=== PATIENT | male | born 1990 | race Caucasian/White ===

== ENCOUNTER 2024-12-09 03:41 | Inpatient (IN) | payer BC, SELFPAY ==
[2024-12-09] VITALS (20 sets, daily range): BP systolic 69–133; BP diastolic 47–81; BMI 32.6; BMI 32.2
--- NOTE | 2024-12-09 02:20 | ED.GENMED ---
History of Present Illness
General
Chief Complaint: Overdose Unintentional
Source: patient and ambulance crew
Exam Limitations: none
Time Seen by Provider: 12/09/24 02:11
Nursing documentation reviewed up to this point in time: agreed with
History of Present Illness
History of Present Illness:
34-year-old male with a past medical history of opioid use presents to the emergency room via EMS for evaluation after opioid overdose. Patient reports that he had not used opioids in a few months, tonight used opioids and unintentionally
overdosed. Per EMS report they received a call that patient was unresponsive. On their arrival patient was cyanotic and pulseless and father was doing CPR. Medics report that initial rhythm was PEA and they could not find a pulse initially. They
began performing BVM ventilation and continued CPR. He was given Narcan intranasally x 2 mg. Shortly thereafter he regained pulse and began to show signs of spontaneous respirations. Total duration of CPR less than 10 minutes by medic medics were
unsure of duration of CPR prior to their arrival. He became hypopneic shortly after initial Narcan and required another 2 mg intranasal dose of Narcan. He was transported to the emergency room and on the way to the emergency room became awake and
alert. On arrival he is alert and talking. He says that he feels short of breath but he denies any other acute issues. He says he has had a cough for the past few days but has otherwise been in his normal state of health. He denies any chest
pain. He denies any abdominal pain. He did have some nausea after Narcan and received some Zofran from the medics. He denies any other drug use or alcohol use. He says that he snorted heroin, never injects. Denies any suicidal intent this
evening. He was noted to have some periorbital ecchymosis on the left on arrival�he says that it was not present earlier this evening and he is not sure how it got there.
UPDATE
I spoke to the patient's parents who are now at bedside. They report that he went to the bathroom this evening and was there for about 30 minutes before they heard a thud. Father found him facedown on the bathroom floor and cyanotic. Father says
he was not breathing. Father called 911 and was told to initiate CPR which he did. Father estimates that it was about 20 minutes before EMS arrived and that EMS was there for about 30 minutes treating patient but ultimately he was awake when
medics left.
Review of Systems
Review of Systems
All Other Systems: ROS reviewed and negative except as documented in HPI and ROS
Constitutional: Denies fever
Respiratory: Reports cough and trouble breathing
Cardiac: Denies chest pain
ABD/GI: Reports nausea; Denies abdominal pain
: Denies flank pain
Musculoskeletal: Denies neck pain or back pain
Neurological: Denies headache
Phy Exam
Physical Exam
Physical Exam:
General: Awake, alert, oriented x3; mild respiratory distress
Head: Normocephalic, left periorbital ecchymosis but no cephalhematoma noted
Eyes: Conjunctiva normal, pupils 3 mm and reactive to light bilaterally; he has left periorbital ecchymosis
Throat: Airway intact, tongue atraumatic, handling secretions
Neck: Trachea midline, no JVD
Lungs: Patient has tachypnea and is hypoxic requiring high flow nasal cannula; breath sounds diminished at the lung bases; he is having gross hemoptysis
Heart: Tachycardia with regular rhythm, no murmurs, gallops, or rubs
Abd: Soft, non distended, nontender
Neuro: Cranial nerves grossly intact, moving all extremities with no gross motor or sensory deficits
Extremities: No edema in extremities, equal pulses in all extremities
Scores
Heart Failure Risk
Heart Failure Risk Score: Not Applicable
Heart Score for Chest Pain Patients
STEMI patient?: Not applicable
Withdrawal Assessment of Alcohol
Withdrawal Assessment Completed?: Not applicable
Course
Orders/Labs/Results
Orders:
Orders
12/09/24 02:04
Chest X-ray Portable [CR Chest Portable - 1 View] Stat
Comment:
Reason For Exam: chest pain
Reason Study Needs to be Portable: Unable to Transport
12/09/24 02:11
CT Head W/o Iv Contrast Urgent
Comment:
Reason For Exam: cardiac arrest
CT Orbits W/o Iv Contrast Urgent
Comment:
Reason For Exam: left orbital trauma
12/09/24 02:13
Electrocardiogram (*1) Urgent
Reason for Study: Shortness of Breath
PE/ABD/Pel w Contrast CT [CT Pe/abd/pel W] Urgent
Comment:
Reason For Exam: cardiac arrest, hypoxia, hemoptysis
EKG- Treatment ONCE
Drug Screen, Urine [Urine Drug Abuse Screen] Urgent
Urinalysis Reflex To Culture Urgent
12/09/24 02:14
COVID-19 Antigen Urgent
Source: Nasal Swab
Complete Blood Count/With Diff Urgent
Lactate Level [Lactic Acid] Urgent
12/09/24 02:15
Acetaminophen Urgent
Alcohol Urgent
CPK [Creatine Phosphokinase] Urgent
Comprehensive Metabolic Panel Urgent
Magnesium Urgent
PTT Urgent
Prothrombin Time Urgent
Troponin I Urgent
12/09/24 02:46
Blood Culture Q30M
AYESHA Source: Blood/Venous
Specimen Description:
12/09/24 02:59
Piperacillin/Tazo 3.375 Gram [Zosyn] 3.375 gram in 50 ml IV NOW
12/09/24 03:00
ABG [Arterial Blood Gas] Urgent
%Oxygen/Room Air: 79%
12/09/24 03:06
Naloxone [Narcan] 0.4 mg IV NOW STA
12/09/24 03:15
Blood Culture Q30M
AYESHA Source: Blood/Venous
Specimen Description:
Abnormal Lab Results
12/09/24 12/09/24
02:14 02:15
Abs Immat Gran (auto) 0.1 H 10^3/uL
(0-0.05)
Absolute Neuts (auto) 8.9 H 10^3/uL
(1.4-6.5)
Absolute Lymphs (auto) 0.7 L 10^3/uL
(1.2-3.4)
Immature Gran % 0.8 H %
(0-0.5)
Neutrophils % 86.3 H %
(42.2-75.2)
Lymphocytes % 7.1 L %
(20.5-51.1)
BUN 28 H mg/dl
(9-20)
Glucose 196 H mg/dl
(70-99)
Lactic Acid 3.2 H mmol/L
(0.7-2.0)
AST 124 H U/L
(17-59)
ALT 86 H U/L
(0-50)
Acetaminophen < 10 L ug/ml
(10-30)
12/09/24 02:14
12/09/24 02:15
Vital Signs
Initial and Last Documented VS:
Initial Vital Signs
Temp Pulse Resp BP Pulse Ox
37.3 C 116 24 123/74 79
12/09/24 02:06 12/09/24 02:06 12/09/24 02:06 12/09/24 02:06 12/09/24 02:06
Last Documented Vital Signs
Temp Pulse Resp BP Pulse Ox
37.3 C 105 28 123/74 79
12/09/24 02:06 12/09/24 02:15 12/09/24 02:15 12/09/24 02:06 12/09/24 02:32
MDM/Problems Addressed
Differential Diagnosis Includes:
Cardiac arrest: Opioid overdose, consider pneumonia/sepsis, PE, dysrhythmia, cardiac causes as well
Hypoxia: Noncardiogenic pulmonary edema, pneumonia/aspiration, PE, CHF
MDM/Problems Addressed:
34-year-old male presents after apparent cardiac arrest/opioid overdose. He was apparently found unresponsive and cyanotic, father initiated CPR and on arrival of medics he was apparently PEA. He received a few minutes of CPR for the medics, BVM
ventilation and intranasal Narcan and ultimately ROSC was obtained and he began breathing spontaneously and is now awake and alert. He is however having mild to moderate respiratory distress and is markedly hypoxic, tachypneic and having gross
hemoptysis. Large-bore IV access established. Stat portable chest x-ray reviewed does appear to show pulmonary edema versus pneumonia. Could be noncardiogenic pulmonary edema related to opioid/naloxone versus aspiration. Placed on high flow
nasal cannula. Labs sent off including a CBC and a CMP, lactate, troponin, tox screen. Stat EKG. Check CT of the head, orbit, chest/abdomen/pelvis. Monitor very closely plan for admission pending initial assessment.
I spoke to the parents who are now at bedside and they provided more of a timeline. Father says that he was doing 20 minutes of CPR because patient was not breathing and print press operator instructed him to initiate CPR. Overall unclear if there was
truly a cardiac arrest�medics had trouble finding a pulse but would be highly unusual for patient to have unwitnessed 30+ minutes cardiac arrest and be awake and alert shortly thereafter with robust blood pressure.
Patient appears stable on high flow nasal cannula although he is becoming more lethargic will repeat Narcan. Awaiting official read of CT but on my review CT head and orbit appear normal and he appears to have pulmonary edema versus pneumonia on
chest CT. No obvious PE noted. Will cover with Zosyn for possible aspiration. Will admit for very close monitoring. I had a long discussion with patient and parents about diagnosis and treatment plan�I explained that very often respiratory
symptoms can worsen in cases like this to the point of needing intubation. Indicated understanding. Case was discussed with hospitalist for admission.
Chronic conditions affecting care:
Opioid use
*Radiology
Radiology exam reviewed: preliminary read by ED provider and radiology read reviewed
*Pulse Oximetry
SaO2: 79
Oxygen Mode of Delivery: Room air
Patient hypoxic: yes (79%)
*EKG
Interpreted by ED Provider?: Yes
Heart Rate: 110
Rate: tachycardiac
Rhythm: sinus
[place]: normal axis
Interval: normal interval
QRS Pattern: right bundle branch block (incomplete)
Ischemia: no ischemia
*Critical Care Note
Total Time (30-74mins, 75-104mins- exclusive of procedures): 41
comment:
Critical care statement: A total of 41 minutes of critical care time was provided for this patient. This includes management of unstable vital signs, evaluation of the patient at bedside, frequent reassessment, discussion with
consultants/hospitalist, and review of pertinent medical records. This time was separate from time utilized to perform any aforementioned documented procedures
Data Reviewed
Source: patient and ambulance crew
Patient Management
Discussion with other providers: Hospitalist (Discussed with hospitalist)
Escalation/DeEscalation of care consider admission/obs:
Admission indicated
ED Attending Note
-
Portions of this chart may have been created with voice recognition software.� Occasional wrong word or��sound alike� substitutions may have occurred due to the inherent limitations of voice recognition software.
Discharge Plan
Departure
Patient Disposition: Admit
Date of Disposition: 12/09/24
Time of Disposition: 03:11
Admit to doctor: Rowan
Presentation/result/management discussed w/ accepting MD/DO: Hospitalist
Patient with high blood pressure during this ER visit?: No
Discharge Problem:
Acute hypoxic respiratory failure, Non-cardiogenic pulmonary edema, Cardiopulmonary arrest with successful resuscitation, Opioid overdose, Aspiration into airway, Hemoptysis
Interventions
Interventions:
*General Assessment Last Done: 12/09/24 02:06
*Neglect/Abuse Screening Last Done: 12/09/24 02:06
*ED- Fall Risk Assessment Last Done: 12/09/24 02:06
*ED COVID-19 Vaccine History Last Done: 12/09/24 02:06
*ED Influenza Vaccine History Last Done: 12/09/24 02:06
ED- Cardiac Assessment Last Done: 12/09/24 02:57
ED- Neurological Assessment Last Done: 12/09/24 02:57
ED-Psychological Assessment Last Done: 12/09/24 02:57
ED- Pulmonary Assessment Last Done: 12/09/24 02:57
Discharge Date and Time
Print Language: [place]
[2024-12-09 02:44] LABS: Hematocrit 42.7 % (39.0-52.0); Hemoglobin 14.6 g/dL (13.0-18.0); Mean Corp Hgb Conc. 34.2 g/dL (33.0-37.0); Mean Corpuscular Volume 87.0 fL (80.0-94.0); Nucleated Red Blood Cells % 0 % (-); Platelet Count 233 10^3/uL (130-400); Red Cell Dist. Width 12.6 % (11.5-14.5)
[2024-12-09 02:55] LABS: INR 1.10; PT 14.5 Sec (11.4-14.6)
[2024-12-09 02:56] LABS: APTT 24.8 Sec (23.4-35.0)
[2024-12-09 02:59] LABS: COVID-19 Antigen Negative (Negative)
[2024-12-09 03:00] LABS: ALT (SGPT) 86 U/L (0-50); AST (SGOT) 124 U/L (17-59); Acetaminophen < 10 ug/ml (10-30); Albumin 4.4 g/dl (3.5-5.0); Alkaline Phosphatase 68 U/L (38-126); Calcium 9.1 mg/dl (8.4-10.2); Carbon Dioxide 26 mmol/L (22-30); Chloride 103 mmol/L (98-107); Estimated Creatinine Clearance 115 ml/min; Glucose 196 mg/dl (70-99); Magnesium 1.9 mg/dl (1.6-2.3); Potassium 4.3 mmol/L (3.5-5.1); Sodium 139 mmol/L (135-145); Total Protein 6.9 g/dl (6.3-8.2); eGFR > 60.00
[2024-12-09 03:09] LABS: Blood Urea Nitrogen 28 mg/dl (9-20)
[2024-12-09 03:14] LABS: Troponin I < 0.012 ng/ml
[2024-12-09] MEDS: NARCAN 0.4 MG IV (03:24)
[2024-12-09] MEDS: ZOFRAN 4 MG IV (03:25)
[2024-12-09 03:29] LABS: B.E. -0.8 mmol/L; HCO3 25.8 mmol/L (21-28); O2 Saturation % 95.9 % (94-98); O2 Therapy 79%; PCO2 49 mmHg (35-48); PO2 78 mmHg (83-108)
[2024-12-09] MEDS: ZOSYN 50 IV ×4 (03:30→20:26)
--- NOTE | 2024-12-09 03:37 | HPS.HSE ---
Family Physician
-
Family Physician: Abhijit Palomo
Chief Complaint
-
Acute respiratory distress, opioid overdose
History of Present Illness
This is a 34-year-old male with no known send Past medical history, coming to the emergency department intubated for respiratory failure with hypoxia.
Patient was found in bathroom unresponsive by his father. When I was not having the patient was able to tell me that he took heroin this a.m. He apparently inhaled crushed heroin. Unclear exactly how much. He was found unresponsive by a friend
who called 911 and was told to start CPR. Reported that he did CPR for around 20 minutes to 30 minutes. He said while doing the CPR he cooled he had some agonal breathing but when he stopped CPR there was no movement of breathing so he continued.
EMS arrived and said the patient was unresponsive. They had some trouble finding a pulse and did another 10 minutes of CPR. They gave him Narcan and BVM. After these interventions the patient woke up and became alert.
Upon arrival in the emergency department he was initially alert but then he became somewhat more lethargic after about an hour and received another dose of Narcan. He denies any history of IV drug use. He denies history of prior opioid use. He
denies any suicidal ideation or suicidal attempt.
He was extremely hypoxic on arrival with oxygen saturation of 70% on room air. He is currently on nonrebreather plus maximum high flow support with tachypnea to the high 30s. His oxygen saturation is ranging from 92 to 95%. His vital signs were
borderline with a blood pressures of around 90-1 20 systolic. Pulse is in the low 100 and a temp of 99.1.
Lactic acid was elevated at 3.2 with otherwise normal CBC, electrolytes BUN and creatinine. Alcohol level is negative. Tylenol level is negative.
His x-ray shows ground glass opacities. CT of the head facial bone abdomen and pelvis with IV contrast shows no evidence of any abnormal process. CT of the chest shows no evidence of pulmonary embolism, there was moderate to severe multifocal
regions of consolidation and ground glass opacities concerning for aspiration.
He has remained lethargic although intermittently last to ask questions and then becoming lethargic again with ongoing tachypnea and low blood pressures. He continued to cough up frothy red-colored material and copious amounts
Medical History
Past Medical History
Past Medical History: Reports None
Past Surgical History: Reports None
Social History
Tobacco: Non-smoker
Alcohol: None
Drug: Former User
Family History
Family History: Not pertinent
Allergies / Home Medications
Allergies reflects when Allergies were last updated in [facility].
Home Medications with original date entered in [facility]
Allergy/Medication List:
Allergies
Allergy/AdvReac Type Severity Reaction Status Date / Time
No Known Allergies Allergy Unverified 12/09/24 03:16
Patient takes no medications
Review of Systems
-
History Source: Family
Respiratory: Reports Cough (Had a cough for about 3 days prior to this event but it was nonproductive.)
Physical Exam
Vital Signs
Vital Signs
Temp Pulse Resp BP Pulse Ox
99.1 F 105 28 123/74 79
12/09/24 02:06 12/09/24 02:15 12/09/24 02:15 12/09/24 02:06 12/09/24 02:32
Physical Exam
General: Well Developed, Well Nourished and Respiratory Distress
HEENT: NormoCephalic, Anicteric, Moist mucous membranes, Atraumatic, PERRLA and Oxygen
Respiratory: Rales
Cardiac: S1/S2 and Tachycardia
Breast: Deferred by me
GI: Soft, Non Tender, Non Distended and Normal Bowel Sounds
Rectal: Deferred by Provider
Genito-urinary: Deferred by me
Musculoskeletal: No Clubbing, No Cyanosis and No Edema
Skin: Warm
Neuro: Awake and Nonfocal/grossly intact
Psych: Calm
Laboratory Results
-
12/09/24 02:14
12/09/24 02:15
Laboratory Results
PT 14.5 Sec (11.4-14.6) 12/09/24 02:15
INR 1.10 12/09/24 02:15
APTT 24.8 Sec (23.4-35.0) 12/09/24 02:15
pH 7.33 (7.35-7.45) L 12/09/24 03:00
pCO2 49 mmHg (35-48) H 12/09/24 03:00
pO2 78 mmHg (83-108) L 12/09/24 03:00
HCO3 25.8 mmol/L (21-28) 12/09/24 03:00
Lactic Acid 3.2 mmol/L (0.7-2.0) H 12/09/24 02:14
Total Bilirubin 0.7 mg/dl (0.2-1.3) 12/09/24 02:15
AST 124 U/L (17-59) H 12/09/24 02:15
ALT 86 U/L (0-50) H 12/09/24 02:15
Alkaline Phosphatase 68 U/L (38-126) 12/09/24 02:15
Troponin I < 0.012 ng/ml 12/09/24 02:15
Data Reviewed
-
CT Scan: Report Reviewed by me
Medical Tests (Nuc Med, Echo, EKG etc): Image Personally Visualized and interpreted
Lab Data: Labs Reviewed by me
Impression/Plan
-
IMPRESSION:
33-year-old who is seen in acute respiratory distress/acute lung injury following unintentional opioid overdose and respiratory failure. He underwent CPR outside of the hospital but is not clear whether he actually coded when patient was given
Narcan he came to and was alert and oriented with no focal deficits. CT of the head shows no acute changes. Despite recovery from opioid overdose with 2 doses of Narcan the patient is in acute respiratory distress and respiratory failure with
multifocal infiltrates on CT scan. He is coughing up copious amount of bloody sputum. No evidence of pulmonary embolism. He is afebrile here and hemodynamically borderline.
PLAN:
Respiratory failure -hypoxic respiratory failure secondary to pulmonary injury�secondary to aspiration or inhalation injury. Appears to have a degree of noncardiogenic pulmonary edema
-Admit to ICU
-Patient to be intubated due to excessive work of breathing and ongoing hypoxia - > low volume with some permissive hypercapnia
-Initial vent settings 14 400 100 5, adjust PEEP to maintain sat greater than 92%, adjust on f/u gas
- pressors to maintain support to avoid excessive volume resuscitation
- Blood cultures sent, COVID-negative, check flu
-IV Zosyn for now, sputum culture
- mineral technologist consult
Cardiac arrest - Initial trop negative. ECG w/o ischemia. Patient awake after narcan. Suspect no cardiac arrest.
- check echo
- trend troponins
DVT prophylaxis�Lovenox subcu
CODE STATUS�full code
[2024-12-09] MEDS: VERSED 5 MG IV (04:06)
[2024-12-09] MEDS: SUBLIMAZE 100 IV ×5 (04:13→21:45)
[2024-12-09] MEDS: DIPRIVAN 100 IV ×4 (04:15→21:11)
--- NOTE | 2024-12-09 04:18 | ED.GENMED ---
History of Present Illness
General
Chief Complaint: Overdose Unintentional
Time Seen by Provider: 12/09/24 02:11
History of Present Illness
History of Present Illness:
After initial signout to hospitalist, patient becoming increasingly tachypneic and labored with his breathing. Assessed at bedside with hospitalist and decision made to proceed with intubation. Discussed with patient and family who are agreeable
given worsening respiratory status. He was successfully intubated as documented in procedure note below. He had some prolonged hypoxia after intubation requiring bagging, was ultimately placed on high PEEP. Required multiple pushes of propofol to
maintain sedation and immediate post intubation period. Placed on propofol infusion and fentanyl infusion for deep sedation overnight. Hospitalist at bedside for reassessment after intubation, patient to be admitted upstairs to the ICU.
Phy Exam
Physical Exam
Physical Exam:
.
Course
Orders/Labs/Results
Orders:
Orders
12/09/24 02:04
Chest X-ray Portable [CR Chest Portable - 1 View] Stat
Comment:
Reason For Exam: chest pain
Reason Study Needs to be Portable: Unable to Transport
12/09/24 02:11
CT Head W/o Iv Contrast Urgent
Comment:
Reason For Exam: cardiac arrest
CT Orbits W/o Iv Contrast Urgent
Comment:
Reason For Exam: left orbital trauma
12/09/24 02:13
Electrocardiogram (*1) Urgent
Reason for Study: Shortness of Breath
PE/ABD/Pel w Contrast CT [CT Pe/abd/pel W] Urgent
Comment:
Reason For Exam: cardiac arrest, hypoxia, hemoptysis
EKG- Treatment ONCE
Drug Screen, Urine [Urine Drug Abuse Screen] Urgent
Urinalysis Reflex To Culture Urgent
12/09/24 02:14
COVID-19 Antigen Urgent
Source: Nasal Swab
Complete Blood Count/With Diff Urgent
Lactate Level [Lactic Acid] Urgent
12/09/24 02:15
Acetaminophen Urgent
Alcohol Urgent
CPK [Creatine Phosphokinase] Urgent
Comprehensive Metabolic Panel Urgent
Magnesium Urgent
NT-proBNP Urgent
Comment: ADDED
PTT Urgent
Prothrombin Time Urgent
Troponin I Urgent
12/09/24 02:46
Blood Culture Q30M
AYESHA Source: Blood/Venous
Specimen Description:
Blood Culture Q30M
AYESHA Source: Blood/Venous
Specimen Description:
12/09/24 03:00
ABG [Arterial Blood Gas] Urgent
%Oxygen/Room Air: 79%
12/09/24 03:06
Naloxone [Narcan] 0.4 mg IV NOW STA
12/09/24 03:16
Add On- LAB Stat
Tests Added?: bnp
Admit/Transfer Patient As Directed
Co-Sign Provider:
Level of Care: Inpatient admission
Assign to:: ICU
Physician / Group: Rowan
Diagnosis: Respiratory failure, unintentional overdose
Reason for Hospitalization: respiratory failure
Expected length of stay greater than two midnights?: Yes
ELOS- Estimated Length of Stay in days: 2
I certify the patient meets the requirements for IP care: Yes
PRN Pain Medication Management As Directed
May give lesser potent ordered pain med per pt: Yes
preference::
Protocol:: Medication orders for pain may be administered in a
manner that supports deferring to patient preference
when the pt is:
- Requesting an ordered lesser potent pain medication.
Least to most potent pain medications are defined
as: acetaminophen < NSAID < tramadol < opioids
(morphine, oxycodone, hydromorphone).
- Requesting a lesser dose of the same medication IF
ORDERED.
- Requesting a less intrusive route of administration
if both routes are prescribed by the provider (PO <
IV).
12/09/24 03:17
Ondansetron Injectable [Zofran] 4 mg .ROUTE .STK-MED ONE
12/09/24 03:18
Piperacillin/Tazo 3.375 Gram [Zosyn] 3.375 gram in 50 ml IV NOW
12/09/24 03:21
Code Status As Directed
Resuscitation Status: Full Code
12/09/24 03:22
Naloxone [Narcan] 0.4 mg .ROUTE .STK-MED ONE
12/09/24 03:25
Ondansetron Injectable [Zofran] 4 mg IV NOW STA
12/09/24 03:37
Propofol 1,000,000 Mcg/100 ml [Diprivan] 1,000,000 mcg in 100 ml .ROUTE .STK-MED
Abnormal Lab Results
12/09/24 12/09/24 12/09/24
02:14 02:15 03:00
Abs Immat Gran (auto) 0.1 H 10^3/uL
(0-0.05)
Absolute Neuts (auto) 8.9 H 10^3/uL
(1.4-6.5)
Absolute Lymphs (auto) 0.7 L 10^3/uL
(1.2-3.4)
Immature Gran % 0.8 H %
(0-0.5)
Neutrophils % 86.3 H %
(42.2-75.2)
Lymphocytes % 7.1 L %
(20.5-51.1)
pH 7.33 L
(7.35-7.45)
pCO2 49 H mmHg
(35-48)
pO2 78 L mmHg
(83-108)
BUN 28 H mg/dl
(9-20)
Glucose 196 H mg/dl
(70-99)
Lactic Acid 3.2 H mmol/L
(0.7-2.0)
AST 124 H U/L
(17-59)
ALT 86 H U/L
(0-50)
Acetaminophen < 10 L ug/ml
(10-30)
12/09/24 02:14
12/09/24 02:15
Vital Signs
Initial and Last Documented VS:
Initial Vital Signs
Temp Pulse Resp BP Pulse Ox
37.3 C 116 24 123/74 79
12/09/24 02:06 12/09/24 02:06 12/09/24 02:06 12/09/24 02:06 12/09/24 02:06
Last Documented Vital Signs
Temp Pulse Resp BP Pulse Ox
37.3 C 123 23 133/65 79
12/09/24 02:06 12/09/24 04:00 12/09/24 04:00 12/09/24 03:55 12/09/24 02:32
Procedures
Intubations
Procedure completed by: Demetris Gallegos MD
Method of Intubation: glidescope
Tube size (cm): 8.0
Placement confirmed by: auscutation, CXR and capnography
Breath sounds after intubation: equal
Intubation complications: O2 saturation decreased
*Pulse Oximetry
SaO2: 79
Nasal Cannula flow liters per minute: 55
Oxygen Mode of Delivery: Room air
Patient hypoxic: not evaluated
*Critical Care Note
Total Time (30-74mins, 75-104mins- exclusive of procedures): Not Applicable
ED Attending Note
-
Portions of this chart may have been created with voice recognition software.� Occasional wrong word or��sound alike� substitutions may have occurred due to the inherent limitations of voice recognition software.
Discharge Plan
Departure
Patient Disposition: Admit
Date of Disposition: 12/09/24
Time of Disposition: 03:11
Admit to doctor: Rowan
Presentation/result/management discussed w/ accepting MD/DO: Hospitalist
Patient with high blood pressure during this ER visit?: No
Discharge Problem:
Acute hypoxic respiratory failure, Non-cardiogenic pulmonary edema, Cardiopulmonary arrest with successful resuscitation, Opioid overdose, Aspiration into airway, Hemoptysis
Interventions
Interventions:
*General Assessment Last Done: 12/09/24 02:06
*Neglect/Abuse Screening Last Done: 12/09/24 02:06
*ED- Fall Risk Assessment Last Done: 12/09/24 02:06
*ED COVID-19 Vaccine History Last Done: 12/09/24 02:06
*ED Influenza Vaccine History Last Done: 12/09/24 02:06
ED- Cardiac Assessment Last Done: 12/09/24 02:57
ED- Neurological Assessment Last Done: 12/09/24 02:57
ED-Psychological Assessment Last Done: 12/09/24 02:57
ED- Pulmonary Assessment Last Done: 12/09/24 02:57
[2024-12-09] MEDS: SUBLIMAZE 50 MCG IV ×3 (05:02→07:39)
[2024-12-09 05:35] LABS: Glucose - Point of Care 92 mg/dl (70-99)
[2024-12-09 05:39] LABS: Urine Character Clear (Clear)
[2024-12-09 05:51] LABS: Urine Red Blood Cell 0-2 /HPF (0-2); Urine Squamous Cell 0-2 /LPF (Few); Urine White Cell 0-2 /HPF (0-5)
[2024-12-09 05:53] LABS: Triglycerides 122 mg/dl (10-149)
[2024-12-09] MEDS: NSS 1000 IV (06:12)
--- NOTE | 2024-12-09 06:14 | W.PN.UPDATE ---
Update Note
Progress Note Update
Procedure Note: Arterial Line�
� Right Wrist Arrow 20 (05/12)�
Diagnosis:��respiratory failure to drug overdose
IV Line Comments: Uneventful Procedure�
Rachel completed pre-procedure: Yes�
A-Line Comments: Sterile technique as per standard protocol, Ultrasound guided insertion�
Functioning�A-line in situ: Yes�
A-line Insertion Start Time:�0545�
A-line in at:��0600
[2024-12-09 06:17] LABS: B.E. -1.0 mmol/L; HCO3 23.5 mmol/L (21-28); O2 Saturation % 100.0 % (94-98); PCO2 38 mmHg (35-48); PO2 251 mmHg (83-108)
[2024-12-09] MEDS: VERSED 2 MG IV ×4 (06:17→20:27)
--- NOTE | 2024-12-09 06:39 | PTCARENOTE ---
Received patient from ED around 445 this am. Patient intubated, sedated on Fentanyl at 300mcg/30ml/hr, Propofol 50mcg/30.9ml/hr. Patient with b/l wrist restraints, strong cough noted, patient sitting up in bed with coughing. Multiple doses of
Fentanyl PRN administered along with 1x dose of Versed. NGT placed to right nare at 55cm and set to LIWS. Duque cath placed and draining clear yellow urine. IVF started at 125ml/hr. Right a-line placed by CASH MANAGEMENT SPECIALIST, zero'd transduced and correlating with
bp. Eren ordered for MAP <65. Labs obtained, UA sent. 3rd IV, 18g, placed in right upper arm.
Parents at bedside, will updating oncoming RN's.
--- NOTE | 2024-12-09 07:53 | CON.INTV ---
Addendum entered and electronically signed by Katlyn Gentile MD 12/09/24 11:48:
Follow-up arterial blood gas reviewed, 7.40
Continue tidal volume at 7 mL/kg at 500, low respiratory rate to 20, continue PEEP at 8, lower FiO2 to 40%.
Original Note:
Consultation
Consultation Request
Date/Time Consultation Requested: 12/08/2024
Date/Time Consultation Performed: 12/10/2024
Medical History
-
History of Present Illness:
Patient currently intubated, mechanically ventilated and sedated, unable to provide any history. Information obtained from EMS records as well as discussion with other healthcare providers.
As per EMS records, a call was placed for patient being unresponsive. Reportedly patient had inhaled crushed heroin and was found unresponsive. Reportedly he received CPR for 20 to 30 minutes in total. On EMS arrival, patient was cyanotic and was
not breathing and did not have a pulse and was receiving chest compressions by his father. EMS took over giving chest compressions was bagged and was given intranasal Narcan following which patient started breathing on his own and had a pulse. He
was placed on oxygen and then started desaturating again requiring another dose of Narcan intranasally. Subsequently patient was more awake, alert and was conversant. Patient was subsequently brought to the emergency room.
Patient was noted to be severely hypoxic in the emergency room requiring nonrebreather as well as high flow oxygen. In view of severe hypoxia, patient was subsequently intubated and mechanically ventilated. Patient was then admitted to ICU and
tread builder consultation was requested for further input.
Past Medical History
Past Medical History: Reportedly None
Past Surgical History: Reportedly None
Social History
Tobacco: Non-smoker
Alcohol: None
Drug: Former User
Family History
Family History: Not pertinent
Allergies / Home Medications
Allergies / Home Medications
Allergies
Allergy/AdvReac Type Severity Reaction Status Date / Time
No Known Allergies Allergy Unverified 12/09/24 03:16
Review of Systems
-
Unable to Obtain full review of systems at this time due to: Patient Intubation
Vitals / Labs / Diagnostic Testing
Vital Signs
Temp Pulse Resp BP Pulse Ox
99.2 F 87 23 118/76 100
12/09/24 07:40 12/09/24 06:45 12/09/24 06:45 12/09/24 06:45 12/09/24 07:29
Lab Data
12/09/24 06:00
12/09/24 06:00
Laboratory Results
12/09/24 12/09/24 12/09/24
02:15 03:00 06:03
PT 14.5
INR 1.10
APTT 24.8
pH 7.33 L 7.40
pCO2 49 H 38
pO2 78 L 251 H
HCO3 25.8 23.5
O2 Delivery Level 79%
Microbiology
12/09/24 05:21 Nasal Swab Influenza Types A & B (GUANAKO) - Final
Negative for Influenza A & B, NAAT
Negative results must be combined with clinical observations
and patient history.
Nucleic Acid Amplification test (NAAT)performed on the
[employer] ID NOW platform.
Diagnostic Testing:
Physical Exam
-
HEENT: Normocephalic and Other (Mild periorbital swelling noted, suspect related to contusion)
Cardiovascular: S1/S2
Respiratory: Clear and Non-Labored Respirations
GI: Non Distended
Neurology: Other (Sedated. )
Skin: Warm
General: Comfortable
Assessment
-
#1. Acute hypoxic respiratory failure with multifocal pneumonia/pneumonitis
- Differential diagnosis include aspiration pneumonitis/aspiration pneumonia versus opioid induced acute lung injury with noncardiogenic pulmonary edema
- Patient at risk of developing ARDS, current PF ratio 251
- Continue broad-spectrum antibiotic IV Zosyn to cover oral kae. Check MRSA screen.
- Influenza A, B, COVID-19 screen negative. MRSA screen pending. Sputum cultures pending. Blood cultures negative so far.
- Considering severity of pneumonitis, start IV methylprednisolone 40 mg daily
- Continue mechanical ventilation, will aim for lung protective ventilation, current peak pressure 22, plat is 17,
- Serial ABG, titrate FiO2 as tolerated
- Follow-up chest x-ray and ABG in a.m. continue sedation with IV propofol and IV fentanyl
- If patient not extubated in the next 24 hours, will initiate tube feeding
#2. Heroin overdose
- Patient received 2 doses of intranasal Narcan by EMS with good response
- Currently patient is intubated, mechanically ventilated, hold off additional Narcan
#3. ?Cardiac arrest at home vs opiate induced apnea
- Patient reportedly was cyanotic on initial evaluation by EMS and could not palpate any pulse or breathing. Patient received CPR
- Positive response to Narcan and patient subsequently awake and alert.
- Suspect opiate induced to severe respiratory depression
- Target normothermia. Avoid hypoglycemia
- Considering patient was awake, alert and oriented in the emergency room, hold off CT head or EEG at this time
- EKG with sinus tachycardia, normal QTc. Troponin and BNP unremarkable. Echocardiogram is pending
#4. Rhabdomyolysis
- Suspect related to being on the floor for unknown duration
- CK level above 4000
- Initiate IV hydration with Ringer lactate at 150 cc an hour, follow-up CK in a.m.
- Mildly abnormal LFTs likely related to rhabdomyolysis
#5. Lactic acidosis
- Likely in the setting of underlying severe respiratory failure
- Continue IV hydration, antibiotics, serial lactate
- Follow ABG
DVT prophylaxis. Subcu Lovenox
GI prophylaxis. IV Protonix
Critical Care time 65 mins -- The patient is admitted for acute critical illness for the treatment of vital organ failure and/or prevention of further life-threatening conditions. Total care includes time spent in review of history, physical exam,
medications, hemodynamic/ventilator parameters, laboratory data, imaging and discussion with house staff, pharmacy, respiratory therapy, health technical writer, and nursing.
Data:
EKG 12/2024: ST with QTc 454
CXR 12/2024: Increased reticulonodular markings scattered throughout both lungs. Main differential considerations of pulmonary edema and bilateral pneumonia.
CT Head/Orbits 12/2024: Bilateral periorbital soft tissue swelling, left greater than right. No evidence for orbital injury.
Slight asymmetric prominence of left frontal scalp soft tissues compared to the right, suggesting scalp edema and/or contusion. No evidence for calvarial fracture.
No evidence of acute intracranial abnormality.
[2024-12-09] MEDS: PROTONIX IV 40 MG IV (08:55)
[2024-12-09] MEDS: LR 1000 IV ×3 (08:55→21:46)
[2024-12-09] MEDS: NSS (PRESERVATIVE FREE) 10 ML IV (08:56)
[2024-12-09] MEDS: SOLU-MEDROL PF 40 MG IV (08:57)
--- NOTE | 2024-12-09 10:57 | W.PN.HOSP.TC ---
Today's Communication/Plan
-
Continue current care
Assessment / Plan
Assessment / Plan
Gen-sedated, intubated
HEENT-NC, left orbital bruising, anicteric, clear oral mm
Neck-supple
CV-reg, no M, +S1/S2
Lungs-clear B/L
Abd-soft, NT, ND
Ext-no edema
Musculoskeletal-no cyanosis, clubbing
Skin-warm and dry
Acute hypoxic respiratory failure -suspect related to inhalational lung injury, possible ARDS. Intubated in the emergency room.
Continue ICU level care. Electric Motor Tester Assembler involved.
CT shows bilateral ground glass and more confluent opacities, relative sparing of the periphery of the lungs.
IV steroids per pulmonary.
On empiric antibiotics but clinically doubt pneumonia.
Mild lactic acidosis noted, repeat pending.
Elevated transaminases -unclear etiology. Monitor for now.
Substance abuse -reportedly inhales heroin, no history of IVDA. Surprisingly, UDS negative.
Will consult psychiatry when extubated and stable.
Left orbital bruising -due to fall, patient found down and unresponsive on the bathroom floor by parents prior to admission. CT scan shows bilateral periorbital soft tissue swelling, left greater than right, no evidence of orbital injury. No
evidence of fracture.
Full code
Family updated at the bedside.
Anticipated Discharge: > 48 hours
Subjective/Interval History
-
Date of Service: December 09, 2024
Patient seen and examined. Remains sedated, intubated.
Objective Data
-
Labs:
Laboratory Results
12/09/24 12/09/24 12/09/24
02:14 02:15 03:00
WBC 10.3
Hgb 14.6
Hct 42.7
Plt Count 233
PT 14.5
INR 1.10
APTT 24.8
HCO3 25.8
Sodium 139
Potassium 4.3
Chloride 103
Carbon Dioxide 26
BUN 28 H
Creatinine 1.1
Glucose 196 H
Calcium 9.1
Total Bilirubin 0.7
AST 124 H
ALT 86 H
Alkaline Phosphatase 68
12/09/24 12/09/24 12/09/24
06:00 06:03 11:00
WBC Cancelled
Hgb Cancelled
Hct Cancelled
Plt Count Cancelled
PT
INR
APTT
HCO3 23.5 Pending
Sodium Cancelled
Potassium Cancelled
Chloride Cancelled
Carbon Dioxide Cancelled
BUN Cancelled
Creatinine Cancelled
Glucose Cancelled
Calcium Cancelled
Total Bilirubin
AST
ALT
Alkaline Phosphatase
Vital Signs:
Vital Signs
Temp Pulse Resp BP Pulse Ox
99.2 F 87 23 118/76 100
12/09/24 07:40 12/09/24 06:45 12/09/24 06:45 12/09/24 06:45 12/09/24 10:04
I&O
12/08/24 12/09/24 12/10/24
06:59 06:59 06:59
Intake Total 525 / 525
Output Total 650 / 650 205 / 205
Balance -650 / -525 320 / 320
Review of Systems
-
Unable to obtain full review of systems at this time due to: Acuity and Patient Intubation
[2024-12-09 11:23] LABS: B.E. -0.2 mmol/L; HCO3 22.6 mmol/L (21-28); O2 Saturation % 99.8 % (94-98); PCO2 31 mmHg (35-48); PO2 123 mmHg (83-108)
[2024-12-09 11:51] LABS: Troponin I 0.023 ng/ml
--- NOTE | 2024-12-09 12:00 | PTCARENOTE ---
Assessment and vital sign trends documented in flowsheets. Family updated during ICU rounds and throughout the day. Patient becomes increasingly agitated with nursing care requiring PRN sedatives. Trending ABG values as ordered.
--- NOTE | 2024-12-09 12:54 | CM ---
Patient intubated. Initial assessment completed with parents in room. Patient was visiting grandmother in [facility]. Patient lives with parents in [place] in 3 story home plus basement with B/B on 3rd, 1/2 bath on , 4 steps to enter. BOTTOM SPRAYER patient
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 No DME. No in-home services. No HC-POA. No VA benefits. No psychiatric hospitalizations. Has had 1 inpatient stay at rehab in [place]. PCP is Dr. Lacey
Dewey. Pharmacy is [facility] on [facility] in . Discharge POC: TBD. [facility]ARES notified.
[2024-12-09 13:33] LABS: Glucose - Point of Care 115 mg/dl (70-99)
--- NOTE | 2024-12-09 14:20 | CARDSERVLU ---
Echocardiogram with Lumason completed after protocol screening completed. Allergies verified.
Patent IV site: ___R AC__
IV site flushed with 0.9% NaCl pre and post administration.
Diluted bolus method utilized to enhance visualization of ventricular blum.
Total volume given: ___2.5_ mL
Patient tolerated all procedures well without complications.
[2024-12-09] MEDS: LR 500 IV (17:16)
[2024-12-09 17:34] LABS: B.E. -1.1 mmol/L; HCO3 23.5 mmol/L (21-28); O2 Saturation % 99.2 % (94-98); PCO2 38 mmHg (35-48); PO2 97 mmHg (83-108)
[2024-12-09] MEDS: LOVENOX 40 MG SC (17:56)
[2024-12-09] MEDS: LEVOPHED 250 IV (17:57)
[2024-12-09 18:00] LABS: Glucose - Point of Care 108 mg/dl (70-99)
--- NOTE | 2024-12-09 18:20 | PTCARENOTE ---
Patient became hypotensive sustaining systolic BP in 70's. 500mL LR bolus ordered and given. Started on norepinephrine infusion. Critical care nurse at bedside.
--- NOTE | 2024-12-09 20:15 | PTCARENOTE ---
cleaner and polisher, pt intub/sedated, SR HR 70-80s, IV x 3 WNL - Fent, Prop, IVF, Levo infusing per work list. R rad AL leveled/zeroed. MV 40%, Sat 97%, tolerating. mouth care, turned/repositioned. parents at bedside. care ongoing.
[2024-12-10] VITALS (16 sets, daily range): BP systolic 100–141; BP diastolic 50–78; BMI 33.8
--- NOTE | 2024-12-10 | PTCARENOTE ---
no changes in assessment.
[2024-12-10] MEDS: DIPRIVAN 100 IV ×3 (00:06→05:45)
[2024-12-10] MEDS: VERSED 2 MG IV ×2 (00:15→04:37)
[2024-12-10 00:16] LABS: Glucose - Point of Care 108 mg/dl (70-99)
[2024-12-10] MEDS: SUBLIMAZE 100 IV ×2 (00:58→04:37)
[2024-12-10] MEDS: ZOSYN 50 IV ×2 (02:52→07:58)
[2024-12-10 03:09] LABS: B.E. 0.8 mmol/L; HCO3 24.0 mmol/L (21-28); O2 Saturation % 99.5 % (94-98); PCO2 33 mmHg (35-48); PO2 105 mmHg (83-108)
[2024-12-10 03:21] LABS: Hematocrit 33.0 % (39.0-52.0); Hemoglobin 11.7 g/dL (13.0-18.0); Mean Corp Hgb Conc. 35.5 g/dL (33.0-37.0); Mean Corpuscular Volume 84.4 fL (80.0-94.0); Nucleated Red Blood Cells % 0 % (-); Platelet Count 192 10^3/uL (130-400); Red Cell Dist. Width 12.7 % (11.5-14.5)
[2024-12-10 03:32] LABS: ALT (SGPT) 47 U/L (0-50); AST (SGOT) 42 U/L (17-59); Albumin 3.0 g/dl (3.5-5.0); Alkaline Phosphatase 43 U/L (38-126); Blood Urea Nitrogen 14 mg/dl (9-20); Calcium 8.0 mg/dl (8.4-10.2); Carbon Dioxide 23 mmol/L (22-30); Chloride 110 mmol/L (98-107); Estimated Creatinine Clearance > 125 ml/min; Glucose 98 mg/dl (70-99); Magnesium 1.8 mg/dl (1.6-2.3); Potassium 3.4 mmol/L (3.5-5.1); Sodium 137 mmol/L (135-145); Total Protein 5.3 g/dl (6.3-8.2); eGFR > 60.00
[2024-12-10] MEDS: LR 1000 IV ×2 (04:36→12:20)
[2024-12-10] MEDS: LEVOPHED 250 IV (04:48)
--- NOTE | 2024-12-10 05:00 | PTCARENOTE ---
pt intermittently restless w/care, prn versed per MAR. no further changes.
[2024-12-10] MEDS: KCL 270 MEQ IV (06:28)
[2024-12-10] MEDS: PRECEDEX 100 IV (06:29)
[2024-12-10] MEDS: MIRALAX 17 GRAMS TUBE (07:28)
[2024-12-10] MEDS: SOLU-MEDROL PF 40 MG IV (07:28)
[2024-12-10] MEDS: PROTONIX IV 40 MG IV (07:28)
--- NOTE | 2024-12-10 07:41 | W.PN.HOSP.TC ---
Today's Communication/Plan
-
Replete potassium
Wean down sedation
Wean down pressors
Extubate per architectural draftsman
Psychiatry consult when awake
Assessment / Plan
Assessment / Plan
Gen-sedated, intubated
HEENT-NC, left orbital bruising, anicteric, clear oral mm
Neck-supple
CV-reg, no M, +S1/S2
Lungs-clear B/L
Abd-soft, NT, ND
Ext-no edema
Musculoskeletal-no cyanosis, clubbing
Skin-warm and dry
Acute hypoxic respiratory failure -suspect related to inhalational lung injury, opioid overdose, possible pneumonia, possible ARDS. No evidence of congestive heart failure. BNP on admission less than 20. Echocardiogram normal.
Intubated in the emergency room.
CPR done at home by family as well as EMS for presumed cardiac arrest, details unclear.
Continue ICU level care. Sample Case Porter involved.
CT shows bilateral ground glass and more confluent opacities, relative sparing of the periphery of the lungs.
IV steroids per pulmonary.
On empiric antibiotics for possible multifocal pneumonia.
Lactic acidosis resolved.
Chest x-ray 12/10 shows improvement in bilateral infiltrates based upon my read, official report pending. Rapid improvement of infiltrates makes pneumonia less likely.
On empiric IV methylprednisolone for pneumonitis as per pulmonary.
ABG this morning shows pH 7.47, pCO2 33, pO2 105, bicarb 24, 99.5% saturation on the ventilator FiO2 40%, PEEP 6, tidal volume 500, rate 20.
Extubation per architectural draftsman.
Shock - currently on low-dose Levophed IV. Differential diagnosis of septic shock versus other etiology.
Blood cultures negative so far. Wean down Levophed as able. Mean arterial pressures are more than adequate, 89 this morning.
Hypokalemia -getting IV repletion. Magnesium 1.8.
Hyperphosphatemia -present on admission, resolved.
Hypocalcemia -8.0. Probably of no clinical consequence, admission calcium was normal.
Elevated transaminases -suspect related to rhabdomyolysis. Resolved.
Acute nontraumatic rhabdomyolysis -present on admission, improved. Can back off on rate of IV fluids.
Substance abuse -reportedly inhales heroin, no history of IVDA. Urine fentanyl screen positive. This was done on UDS obtained in the emergency room prior to initiation of IV fentanyl in the hospital.
Will consult psychiatry when extubated and stable.
Left orbital bruising -due to fall, patient found down and unresponsive on the bathroom floor by parents prior to admission. CT scan shows bilateral periorbital soft tissue swelling, left greater than right, no evidence of orbital injury. No
evidence of fracture.
Acute anemia -hemoglobin 14.6 on admission, 11.7 this morning. Suspect hemodilution from IV fluid administration. No evidence of bleeding.
Full code
Family updated at the bedside.
Anticipated Discharge: > 48 hours
Subjective/Interval History
-
Date of Service: December 10, 2024
Patient seen and examined, sedated, intubated. Looks comfortable.
Objective Data
-
Labs:
Laboratory Results
12/10/24
02:52
WBC 12.0 H
Hgb 11.7 L
Hct 33.0 L
Plt Count 192
HCO3 24.0
Sodium 137
Potassium 3.4 L
Chloride 110 H
Carbon Dioxide 23
BUN 14
Creatinine 0.8
Glucose 98
Calcium 8.0 L
Total Bilirubin 1.2
AST 42
ALT 47
Alkaline Phosphatase 43
Vital Signs:
Vital Signs
Temp Pulse Resp BP Pulse Ox
99 F 64 20 118/76 93
12/10/24 03:30 12/10/24 05:45 12/10/24 05:45 12/09/24 06:45 12/10/24 05:45
I&O
10/04/0412/10/24 12/11/24
06:59 06:59 06:59
Intake Total 3189.9 / 3426.5 236.6 / 236.6
Output Total 650 / 650 1390 / 1490 100 / 100
Balance -650 / -525 1799.9 / 1936.5 136.6 / 136.6
Review of Systems
-
Unable to obtain full review of systems at this time due to: Acuity and Patient Intubation
--- NOTE | 2024-12-10 08:01 | PTCARENOTE ---
pt received from previous rn- ett to vent- see settings as charted. Dr. Gentile at bedside, weaning sedation as per Dr. Gentile. right radial farzana zeroed and functioning. ivf continue as per order. levo on 2mcg. nsr to sinus vince on monitor, pt
follows simple commands. parents at bedside and both educated on weaning and plan of care, both verbalized understanding. all safety precautions in place.
--- NOTE | 2024-12-10 08:53 | PTCARENOTE ---
pt extubated to 2LNC, pt appropriate, parents remain at bedside. precedex off. remains on ivf
--- NOTE | 2024-12-10 09:24 | RESPNOTE ---
Pt extubated to nasal cannula 2L, without complications at 8:50.
--- NOTE | 2024-12-10 10:24 | PTCARENOTE ---
a line removed per order, pressure dressing applied. madrid removed at 1015.
[2024-12-10] MEDS: ZOFRAN 4 MG IV (11:17)
[2024-12-10 11:53] LABS: Glucose - Point of Care 96 mg/dl (70-99)
--- NOTE | 2024-12-10 13:00 | PTCARENOTE ---
per Dr. Gentile complete swallow screen- pt passed screen, regular diet ordered per md.
--- NOTE | 2024-12-10 13:00 | PTCARENOTE ---
pt passed swallow screen completed per Dr. Gentile, regular diet ordered per md.
--- NOTE | 2024-12-10 13:37 | W.PN.INTV ---
Today's Communication / Plan
Recommendations
- Tolerated SAT/SBT well, extubated to nasal cannula
- 5 days of antibiotics, Unasyn/Augmentin should suffice
- Continue steroids for 5 days
- Weaned off pressors
- Patient stable for transfer out of ICU.
- Rolloff Truck Driver service will sign off, please call as needed
Assessment
-
As per EMS records, a call was placed for patient being unresponsive. Reportedly patient had inhaled crushed heroin and was found unresponsive. Reportedly he received CPR for 20 to 30 minutes in total. On EMS arrival, patient was cyanotic and was
not breathing and did not have a pulse and was receiving chest compressions by his father. EMS took over giving chest compressions was bagged and was given intranasal Narcan following which patient started breathing on his own and had a pulse. He
was placed on oxygen and then started desaturating again requiring another dose of Narcan intranasally. Subsequently patient was more awake, alert and was conversant. Patient was subsequently brought to the emergency room.
Patient was noted to be severely hypoxic in the emergency room requiring nonrebreather as well as high flow oxygen. In view of severe hypoxia, patient was subsequently intubated and mechanically ventilated. Patient was then admitted to ICU and
tick sewer consultation was requested for further input.
#1. Acute hypoxic respiratory failure with multifocal pneumonia/pneumonitis/Inhalational injury
- Differential diagnosis include aspiration pneumonitis/aspiration pneumonia versus opioid induced acute lung injury with noncardiogenic pulmonary edema
- Responded well to antibiotic, steroids and ventilatory support
- 12/10, tolerated SAT and SBT well. Precedex was added and patient was weaned off of fentanyl and propofol. Extubated successfully to nasal cannula
- Follow-up chest x-ray improved
- MRSA screen negative, discontinue IV vancomycin. Switch to IV Unasyn. 5 days of antibiotics should suffice
- Continue steroid for 5 days total
#2. Heroin overdose
- Patient received 2 doses of intranasal Narcan by EMS with good response
- Monitor closely for signs/symptoms of withdrawal
#3. ?Cardiac arrest at home vs opiate induced apnea
- Patient reportedly was cyanotic on initial evaluation by EMS and could not palpate any pulse or breathing. Patient received CPR
- Positive response to Narcan and patient subsequently awake and alert.
- Suspect opiate induced severe respiratory depression. Echocardiogram is unremarkable
#4. Rhabdomyolysis
- Suspect related to being on the floor for unknown duration
- CK level was above 4000, responded well to IV fluids, improving levels
#5. Lactic acidosis
- Likely in the setting of underlying severe respiratory failure
- Resolved.
DVT prophylaxis. Subcu Lovenox
GI prophylaxis. IV Protonix
Critical Care time 48 mins -- The patient is admitted for acute critical illness for the treatment of vital organ failure and/or prevention of further life-threatening conditions. Total care includes time spent in review of history, physical exam,
medications, hemodynamic/ventilator parameters, laboratory data, imaging and discussion with house staff, pharmacy, respiratory therapy, telephone sales agent, and nursing.
Data:
EKG 12/2024: ST with QTc 454
CXR 12/2024: Increased reticulonodular markings scattered throughout both lungs. Main differential considerations of pulmonary edema and bilateral pneumonia.
CT Head/Orbits 12/2024: Bilateral periorbital soft tissue swelling, left greater than right. No evidence for orbital injury.
Slight asymmetric prominence of left frontal scalp soft tissues compared to the right, suggesting scalp edema and/or contusion. No evidence for calvarial fracture.
No evidence of acute intracranial abnormality.
Subjective Dataa
Subjective Data
Date of Service:
Date of Service: December 10, 2024
Subjective:
Comfortably sitting in bed in no acute distress.
Review of Systems
Genitourinary: Other (Intubated)
Objective Data
Data Reviewed
Vital Signs / I&O / Oxygen:
Vital Signs
Temp Pulse Resp BP Pulse Ox
98.4 F 95 20 127/67 91
12/10/24 12:14 12/10/24 12:00 12/10/24 12:00 12/10/24 11:00 12/10/24 12:00
Intake and Output
12/09/24 12/10/24 12/11/24
06:59 06:59 06:59
Intake Total 3189.9 / 3426.5 937.6 / 937.6
Output Total 650 / 650 1390 / 1460 180 / 180
Balance -650 / -525 1799.9 / 1966.5 757.6 / 757.6
SaO2 [A/C] 94
SaO2 91
Nasal Cannula flow liters per 55
minute
Physical Exam
General: Comfortable
HEENT: Normocephalic
Cardiovascular: S1-S2
Respiratory: Clear
GI: Soft and Non Distended
Neurology: Awake and Alert
Skin: Warm
Labs/Micro/Reports
Lab Data
12/10/24 02:52
12/10/24 02:52
Laboratory Results
12/09/24 12/10/24
17:26 02:52
pH 7.40 7.47 H
pCO2 38 33 L
pO2 97 105
HCO3 23.5 24.0
O2 Delivery Level
Microbiology
12/09/24 06:09 Sputum Respiratory Culture - Preliminary
12/09/24 06:09 Sputum Gram Stain - Preliminary
12/09/24 05:57 Nose MRSA Screen - Final
No Methicillin Resistant Staphylococcus aureus isolated.
12/09/24 02:46 Blood/Venous Blood Culture - Preliminary
No Growth in 24 hours- Final report to follow
12/09/24 02:46 Blood/Venous Blood Culture - Preliminary
No Growth in 24 hours- Final report to follow
12/09/24 05:21 Nasal Swab Influenza Types A & B (GUANAKO) - Final
Negative for Influenza A & B, NAAT
Negative results must be combined with clinical observations
and patient history.
Nucleic Acid Amplification test (NAAT)performed on the
[employer] ID NOW platform.
[2024-12-10] MEDS: UNASYN IV ×2 (14:12→20:38)
--- NOTE | 2024-12-10 15:19 | PTCARENOTE ---
pt oob to chair without difficulty, on 5LNC, pt with no complaints at this time. dad and pt aware of transfer orders.
--- NOTE | 2024-12-10 15:27 | CM ---
Extubated this afternoon to NC, IV/AB, IV/Steroids, weaning pressors. Discharge POC: TBD. BCARES following.
--- NOTE | 2024-12-10 16:48 | PTCARENOTE ---
per Dr. Gentile complete swallow screen- pt passed screen, regular diet ordered per md.
[2024-12-10] MEDS: LOVENOX 40 MG SC (17:39)
--- NOTE | 2024-12-10 17:50 | PTCARENOTE ---
Received patient from ICU at 1600 awake alert , able to make needs known. Gait slow and steady , able to ambulate from wheelchair to chair. Denies any pain or discomfort . Oriented to room . Family visiting at present .
[2024-12-10 18:25] LABS: Glucose - Point of Care 90 mg/dl (70-99)
--- NOTE | 2024-12-10 22:35 | PTCARENOTE ---
Patient refused AccuCheck. Patient states he is not a diabetic. Daytime provider made aware per day shift.
[2024-12-11] MEDS: UNASYN IV ×2 (01:35→07:41)
[2024-12-11 04:03] VITALS: BP 104/62
[2024-12-11] MEDS: MAALOX 30 ML PO (04:32)
[2024-12-11] MEDS: PROTONIX IV 40 MG IV (07:30)
[2024-12-11] MEDS: MIRALAX TUBE ×2 (07:30→07:39)
[2024-12-11] MEDS: SOLU-MEDROL PF 40 MG IV (07:31)
[2024-12-11] MEDS: NSS (PRESERVATIVE FREE) 10 ML IV (07:31)
[2024-12-11 07:34] LABS: Glucose - Point of Care 94 mg/dl (70-99)
[2024-12-11 08:00] VITALS: BP 129/72
[2024-12-11 08:54] LABS: Hematocrit 37.7 % (39.0-52.0); Hemoglobin 12.8 g/dL (13.0-18.0); Mean Corp Hgb Conc. 34.0 g/dL (33.0-37.0); Mean Corpuscular Volume 86.1 fL (80.0-94.0); Nucleated Red Blood Cells % 0 % (-); Platelet Count 188 10^3/uL (130-400); Red Cell Dist. Width 12.6 % (11.5-14.5)
[2024-12-11 09:41] LABS: Blood Urea Nitrogen 9 mg/dl (9-20); Calcium 8.5 mg/dl (8.4-10.2); Carbon Dioxide 26 mmol/L (22-30); Chloride 107 mmol/L (98-107); Estimated Creatinine Clearance > 125 ml/min; Glucose 84 mg/dl (70-99); Potassium 3.5 mmol/L (3.5-5.1); Sodium 140 mmol/L (135-145); eGFR > 60.00
--- NOTE | 2024-12-11 10:12 | W.PN.HOSP.TC ---
Addendum entered and electronically signed by Philip Veloz DO 12/11/24 13:56:
Shock resolved, possibly hypovolemic.
Original Note:
Today's Communication/Plan
-
Wean down oxygen
Psychiatry consult
Assessment / Plan
Assessment / Plan
Gen-awake, alert, NAD
HEENT-NC, left orbital bruising, anicteric, clear oral mm
Neck-supple
CV-reg, no M, +S1/S2
Lungs-clear B/L
Abd-soft, NT, ND
Ext-no edema
Musculoskeletal-no cyanosis, clubbing
Skin-warm and dry
Neuro -grossly nonfocal.
Acute hypoxic respiratory failure -suspect related to inhalational lung injury, opioid overdose, possible pneumonia, possible ARDS. No evidence of congestive heart failure. BNP on admission less than 20. Echocardiogram normal. Patient did have a
cough productive of yellow phlegm for 1 week prior to presentation to the hospital.
Extubated 12/10. Oxygenation stable on 3 L nasal cannula, wean down as able.
CPR done at home by family as well as EMS for presumed cardiac arrest, details unclear.
Continue ICU level care. [place] involved.
CT shows bilateral ground glass and more confluent opacities, relative sparing of the periphery of the lungs.
IV steroids per pulmonary, 5-day course.
On empiric antibiotics for possible multifocal pneumonia. 5-day course.
Lactic acidosis resolved.
Shock -resolved. Blood cultures negative.
Hypokalemia -3.5, will order oral KCl.
Hyperphosphatemia -present on admission, resolved.
Hypocalcemia -8.0. Probably of no clinical consequence, admission calcium was normal.
Elevated transaminases -suspect related to rhabdomyolysis. Resolved.
Acute nontraumatic rhabdomyolysis -present on admission, improved.
Substance abuse -reportedly inhales heroin, no history of IVDA. Urine fentanyl screen positive. This was done on UDS obtained in the emergency room prior to initiation of IV fentanyl in the hospital.
Psychiatry consulted.
Left orbital bruising -due to fall, patient found down and unresponsive on the bathroom floor by parents prior to admission. CT scan shows bilateral periorbital soft tissue swelling, left greater than right, no evidence of orbital injury. No
evidence of fracture.
Acute anemia -hemoglobin stable at 12.8. Suspect hemodilution from IV fluid administration. No evidence of bleeding.
Full code
Anticipated Discharge: Within 24 hours
Subjective/Interval History
-
Date of Service: December 11, 2024
Patient seen and examined. No complaints.
Objective Data
-
Labs:
Laboratory Results
12/11/24
07:02
WBC 9.4
Hgb 12.8 L
Hct 37.7 L
Plt Count 188
Sodium 140
Potassium 3.5
Chloride 107
Carbon Dioxide 26
BUN 9
Creatinine 0.8
Glucose 84
Calcium 8.5
Vital Signs:
Vital Signs
Temp Pulse Resp BP Pulse Ox
98.3 F 98 19 129/72 94
12/11/24 08:00 12/11/24 08:00 12/11/24 08:00 12/11/24 08:00 12/11/24 08:00
I&O
12/10/24 12/11/24 12/12/24
06:59 06:59 06:59
Intake Total 3189.9 / 3426.5 1657.6 / 1657.6
Output Total 1390 / 1460 180 / 180
Balance 1799.9 / 1966.5 1477.6 / 1477.6
Review of Systems
-
History Source: Patient
All other systems: Reviewed and negative
[2024-12-11] MEDS: KCL 40 MEQ PO (10:16)
[2024-12-11] MEDS: AUGMENTIN 875 MG/125 MG 1 TABLET PO ×2 (10:25→19:45)
[2024-12-11 10:44] LABS: Magnesium 2.0 mg/dl (1.6-2.3)
--- NOTE | 2024-12-11 11:08 | CM ---
Addendum entered by Hazel Moreira 12/11/24 15:44:
Per [facility]; patient parents had indicated that patient was not interested in [facility] services earlier in ICU. [facility] will touch base again with patient tomorrow to confirm and update CM.
Original Note:
Patient seen at bedside on . Patient stated that he is open to talking to [facility]. Patient still on O2 3 liters. CM will call to [facility] for assessment. CM will continue to follow for discharge planning needs.
Plan; [facility]
[2024-12-11 12:00] VITALS: BP 147/74
--- NOTE | 2024-12-11 13:25 | PN.CDI ---
CDI
- -
CDI:
Physician Documentation Request
Admit Date: 12/09/24 03:41
Dear Doctor Magdiel,
Patient admitted for management of acute hypoxic respiratory failure - suspect related to inhalational lung injury, opioid overdose, possible pneumonia, possible ARDS
Progress note includes diagnosis of shock.
Patient spent some time on Levophed that has been discontinues.
Please clarify the type of shock:
Septic shock
Cardiogenic shock
Hypovolemic shock - indicate if due to surgery, trauma or other etiology
Shock, unknown type
Other
Use of terms such as suspected, likely, concern for, or probable (associated with a specific diagnosis that is being evaluated, monitored, or treated as if it exists) are acceptable and can be coded in the inpatient setting, when documented at the
time of discharge.
Thank you,
Reshma Thomas RN, BSN
CDI Specialist
tiger text
Please use your independent medical judgment in providing your response.
--- NOTE | 2024-12-11 14:10 | CS.PSYCHR ---
Consult Summary - Psychiatry
-
pt seen in consultaton after near fatal overdose of opioids.
34 yo man with past history of opioid use disorder brought to ED by EMS after found unresponsive and blue by parents in grandmother's home in [place]. Father performed CPR for 24 minutes until EMS arrived; in ED had difficulty maintaining
ventilation so intubated. Now out of ICU, extubated, still with nasal O2.
Pt denies this was a suicide attempt, states he has long history of recovery followed by slips like this. Had been in rehab in spring 2024 at [facility], in outpatient until September (using vivitrol for part of that) then moved from [facility]
to [facility] to be with parents. Used once earlier in November, then again 12/08. Says used only a tiny bit; UDS positive only for fentanyl.
Born and raised in [place], hs grad, some [employer] college. Not really sure what he wanted to do with his life, currently manages car wash. Only child, parents retired 3 years ago when mother diagnosed with breast cancer. Had been living in [facility]
prior to spring with GF but they are currently on a break (though she has come down to see him.) No other relationships currently, no children. Had been working out at [employer], took part in bodybuilding competitions and used some anabolic steroids about
three years ago, not now.
Has had a couple of experiences with therapy, not especially useful.
Long discussion of reasons for use (started in early 20s, first pills, but moved to heroin because pills no longer produced a high.)
Mental status exam: wd/wn pleasant cooperative using nasal O2 seated in chair in hospital gowns. Parents at bedside, exited room for us to talk. Denies feeling depressed, says he thinks he should feel worse about all that he has put parents through,
but just can bring himself to feel it--troubled by this.
No signs of cognitive impairment, no signs of psychosis, fair insight and judgment.
Impression: opioid use disorder with near fatal od on fentanyl
No need for 1;1, not suicidal, but should be sent to rehab to help reduce use. Would start on po naltrexone 50 mg now, with likely transition to vivitrol
Please consult [facility] to help with referral.
[2024-12-11 15:55] VITALS: BP 123/60
[2024-12-11] MEDS: REVIA 50 MG PO (16:19)
[2024-12-11] MEDS: LOVENOX 40 MG SC (17:58)
[2024-12-11 19:16] VITALS: BP 128/82
[2024-12-11] MEDS: KCL 20 MEQ PO (19:45)
[2024-12-11 23:12] VITALS: BP 128/69
[2024-12-12 02:58] VITALS: BP 127/57
[2024-12-12 07:00] VITALS: BP 122/67
[2024-12-12 07:55] LABS: Blood Urea Nitrogen 11 mg/dl (9-20); Calcium 9.3 mg/dl (8.4-10.2); Carbon Dioxide 27 mmol/L (22-30); Chloride 109 mmol/L (98-107); Estimated Creatinine Clearance > 125 ml/min; Glucose 84 mg/dl (70-99); Potassium 4.0 mmol/L (3.5-5.1); Sodium 143 mmol/L (135-145); Triglycerides 137 mg/dl (10-149); eGFR > 60.00
[2024-12-12] MEDS: AUGMENTIN 875 MG/125 MG 1 TABLET PO (08:15)
[2024-12-12] MEDS: REVIA 50 MG PO (08:16)
[2024-12-12] MEDS: DELTASONE 40 MG PO (08:16)
[2024-12-12] MEDS: KCL 20 MEQ PO (08:16)
[2024-12-12] MEDS: PROTONIX IV 40 MG IV (08:16)
[2024-12-12] MEDS: NSS (PRESERVATIVE FREE) 10 ML IV (08:16)
[2024-12-12] MEDS: MIRALAX TUBE (08:17)
--- NOTE | 2024-12-12 10:48 | W.PN.HOSP.TC ---
Addendum entered and electronically signed by Philip Veloz DO 12/12/24 13:13:
Patient prefers to go home, does not want to do inpatient drug rehab. Discussed with case management. He has been set up with outpatient [facility] program.
Psychiatry saw patient today and they are okay with discharge home with family. Outpatient drug rehab.
Will discharge today. Outpatient follow-up.
Original Note:
Today's Communication/Plan
-
Discharge planning
Assessment / Plan
Assessment / Plan
Gen-awake, alert, NAD
HEENT-NC, left orbital bruising, anicteric, clear oral mm
Neck-supple
CV-reg, no M, +S1/S2
Lungs-clear B/L
Abd-soft, NT, ND
Ext-no edema
Musculoskeletal-no cyanosis, clubbing
Skin-warm and dry
Neuro -grossly nonfocal.
Acute hypoxic respiratory failure -suspect related to inhalational lung injury, opioid overdose, possible pneumonia, possible ARDS. No evidence of congestive heart failure. BNP on admission less than 20. Echocardiogram normal. Patient did have a
cough productive of yellow phlegm for 1 week prior to presentation to the hospital.
Extubated 12/10. Oxygenation improved, now on room air.
CPR done at home by family as well as EMS for presumed cardiac arrest, details unclear.
Continue ICU level care. Closing Coordinator involved.
CT shows bilateral ground glass and more confluent opacities, relative sparing of the periphery of the lungs.
IV steroids per pulmonary, 5-day course.
On empiric antibiotics for possible multifocal pneumonia. 5-day course.
Lactic acidosis resolved.
Shock -resolved. Blood cultures negative.
Hypokalemia - resolved.
Hyperphosphatemia -present on admission, resolved.
Hypocalcemia - resolved.
Elevated transaminases -suspect related to rhabdomyolysis, shock. Resolved.
Acute nontraumatic rhabdomyolysis -present on admission, improved.
Substance abuse -reportedly inhales heroin, no history of IVDA. Urine fentanyl screen positive. This was done on UDS obtained in the emergency room prior to initiation of IV fentanyl in the hospital.
Psychiatry recommending drug rehab on discharge. Naltrexone started.
Left orbital bruising -due to fall, patient found down and unresponsive on the bathroom floor by parents prior to admission. CT scan shows bilateral periorbital soft tissue swelling, left greater than right, no evidence of orbital injury. No
evidence of fracture.
Acute anemia -hemoglobin stable at 12.8. Suspect hemodilution from IV fluid administration. No evidence of bleeding.
Full code
Dispo -medically stable for discharge to drug rehab. Case management aware. [facility] is aware.
Anticipated Discharge: Within 24 hours
Subjective/Interval History
-
Date of Service: December 12, 2024
Patient seen and examined, no complaints.
Objective Data
-
Labs:
Laboratory Results
12/12/24
07:03
Sodium 143
Potassium 4.0
Chloride 109 H
Carbon Dioxide 27
BUN 11
Creatinine 0.9
Glucose 84
Calcium 9.3
Vital Signs:
Vital Signs
Temp Pulse Resp BP Pulse Ox
98.7 F 89 17 122/67 98
12/12/24 07:00 12/12/24 07:00 12/12/24 07:00 12/12/24 07:00 12/12/24 07:00
I&O
12/11/24 12/12/24 12/13/24
06:59 06:59 06:59
Intake Total 1657.6 / 1657.6
Output Total 180 / 180
Balance 1477.6 / 1477.6
Review of Systems
-
History Source: Patient
All other systems: Reviewed and negative
[2024-12-12 11:06] VITALS: BP 126/89
--- NOTE | 2024-12-12 11:31 | CM ---
Addendum entered by Chloe Adorno 12/12/24 13:15:
Per Saran at [facility] patient to follow up with outpatient treatment through [facility].
Addendum entered by Chloe Adorno 12/12/24 12:52:
Saran from [facility] met with patient offered inpatient in [facility] but patient declined inpatient treatment, only agreeable to outpatient treatment, mental health case manager spoke with Dr Elliott, psychiatry who will follow up with patient.
Original Note:
Chart reviewed and recommendation is for inpatient D&A treatment, per [facility] his insurance is inactive, patient resides in [place] and is not a resident of [facility], [facility] is a [facility] agency and are willing to help and encourage
patient to inpatient treatment.
Plan; To locate inpatient treatment option for patient and to obtain funding as patient's insurance is inactive.
--- NOTE | 2024-12-12 13:12 | W.DS.TRANS ---
DC Summary - [employer]
-
Discharge Instructions:
Discharge Diagnosis/Procedures Acute respiratory failure, fentanyl overdose,
electrolyte abnormalities
Diet Regular
Activity As tolerated
Driving Restrictions As prior to admission
Bathing Restrictions None
Instructions:
Stand-Alone Forms:
Changes to Home Medications: No
Discharge Medications:
DC Medications w/original date entered in [facility]
amoxicillin 875 mg-potassium clavulanate 125 mg tablet 1 tab PO Q12 #4 tabs 12/12/24
naltrexone 50 mg tablet 50 mg PO DAILY #30 tabs 12/12/24
prednisone 20 mg tablet 40 mg (2 x 20 mg) PO DAILY #2 tabs 12/12/24
Home Medication Changes
Pending Results: No
--- NOTE | 2024-12-12 15:51 | W.PN.UPDATE ---
Update Note
Progress Note Update
Pt seen & evaluated at bedside, chart reviewed. Pt does not want to go to rehab at this time, plans to return and stay with parents for the time being whom he describes as supports currently. Pt expressed understanding why rehab was being
recommended, however says he does not think that is the right choice for him at the moment. Pt was in rehab earlier this year, as per his report he found it helpful and has been working on his recovery since. Says that this has been a struggle as he
is able to get about a month clean at a time between relapses. Reports relapses are brief but remain consistent at roughly monthly intervals. Pt was able to meaningfully discuss this OD in this context - discussed the increased risk of using opiates
in this manner due to significant decrease in tolerance and prevalence of fentanyl in unknown amounts. Pt expressed being frightened by this OD and expressed hopefulness that this will help serve as more motivation in recovery. He denied current
desire to use. He does attend AA & NA meetings, regularly but minimally. [facility] and [facility], [facility] will be sending him information regarding available D&A outpatient programs which pt plans to pursue as he does
express that he thinks this would be a more helpful option for him at this current time.
Pt pleasant and cooperative. APpropriately down when discussing OD but affect with appropriate range and spontaneous smiles/interactiveness also observed. Denies SI/HI, no evidence of AVH/delusions. thought process is linear & logical,
insight/judgement appropriate for the situation. Pt future oriented and future planning.
Pt OK for discharge w/ plan for outpatient follow up. As per his report, given the intermittent nature of his use the long-term care available via outpatient means is likely to be more beneficial to him than inpatient rehab (which is about 28-30
days and roughly the length of his current sobriety periods).
== END 2024-12-12 16:06 | disposition home or self-care (01) | DRG 917 ==
LOC: 4 WEST ACU 03:41
PROVIDERS: Nurse Practitioner Primary Care; ADMITTING PHYSICIAN Internal Medicine; ATTENDING PHYSICIAN Hospitalist; CONSULT PHYSICIAN Internal Medicine; CONSULT PHYSICIAN Psychiatry & Neurology Psychiatry; EMERGENCY PHYSICIAN Emergency Medicine; FAMILY PHYSICIAN Internal Medicine
PROC: 03HY32Z Insertion of Monitoring Device into Upper Artery, Percutaneous Approach (ICD-10-PCS; 2024-12-09)
PROC: 5A1935Z Respiratory Ventilation, Less than 24 Consecutive Hours (ICD-10-PCS; 2024-12-09)
PROC: 0BH17EZ Insertion of Endotracheal Airway into Trachea, Via Natural or Artificial Opening (ICD-10-PCS; 2024-12-09)
DX: T40.2X1A Poisoning by other opioids, accidental (unintentional), initial encounter (principal); I46.9 Cardiac arrest, cause unspecified; J96.01 Acute respiratory failure with hypoxia; J69.0 Pneumonitis due to inhalation of food and vomit; R57.1 Hypovolemic shock; M62.82 Rhabdomyolysis; E87.20 Acidosis, unspecified; S05.12XA Contusion of eyeball and orbital tissues, left eye, initial encounter; W18.30XA Fall on same level, unspecified, initial encounter; E87.6 Hypokalemia; E83.39 Other disorders of phosphorus metabolism; E83.51 Hypocalcemia; F11.10 Opioid abuse, uncomplicated; R74.01 Elevation of levels of liver transaminase levels; Z11.52 Encounter for screening for COVID-19; Z79.899 Other long term (current) drug therapy
CPT/HCPCS: 31500; 70450; 70480; 71045; 71275; 74177; 80048; 80053; 80143; 80306; 80307; 81003; 81015; 82077; 82550; 82805; 82962; 83605; 83735; 83880; 84100; 84478; 84484; 85025; 85610; 85730; 87040; 87070; 87147; 87186; 87205; 87502; 87811; 93005; 93306; 94002; 94003; 99285; Q9950; Q9967